=== PATIENT | female | born 1950 | race Caucasian/White ===

== ENCOUNTER → 2019-03-20 | Outpatient (CLI) | payer MEDICARE, OTHER | LOC: LAB SHORT 14:25 → LAB 14:25 | DX: N39.0 Urinary tract infection, site not specified (principal) | CPT/HCPCS: 87086 ==

== ENCOUNTER → 2019-04-17 | Outpatient (CLI) | payer MEDICARE, OTHER ==
[2019-04-17 11:15] LABS: Source, Urine Clean Catch
[2019-04-17 12:54] LABS: Bilirubin, Urine Neg (Neg); Blood, Urine Neg (Neg); Glucose Qualitative, Urine Neg (Neg); Ketones, Urine Neg (Neg); Leukocyte Esterase, Urine 1+ (Neg); Nitrite, Urine Neg (Neg); Protein, Urine Neg (Neg); Specific Gravity, Urine 1.015 (1.003-1.022); Urobilinogen, Urine NORM (Normal)
[2019-04-17 13:03] LABS: Appearance, Urine Clear (Clear); Color, Urine Yellow (P-Yellow)
[2019-04-17 13:05] LABS: Red Blood Cells, Urine 0-2 /hpf (0-2)
[2019-04-17 13:06] LABS: Bacteria Rare /hpf; Squamous Epithelial Cells Few /hpf (Few)
== END | disposition home or self-care (01) ==
LOC: LAB 11:14 → LAB SHORT 11:14
PROVIDERS: Internal Medicine
DX: N39.0 Urinary tract infection, site not specified (principal)
CPT/HCPCS: 81001; 87086

== ENCOUNTER 2020-03-03 12:19 | Emergency (ER) | payer MEDICARE, OTHER ==
[~2020-03-03] VITALS: Ht 180.3 cm; Wt 69.4 kg
[2020-03-03] MEDS ORDERED: FIORINAL 50-321 EACH PO (15:08)
[2020-03-03] MEDS ORDERED: POTCHL20ER PO (15:08)
[2020-03-03] MEDS ORDERED: CYCL10 PO (15:08)
[2020-03-03] MEDS ORDERED: MELATONIN5 M1 PO (15:08)
[2020-03-03] MEDS ORDERED: Calcium + Vita1 EACH PO (15:09)
== END 2020-03-03 17:03 | disposition home or self-care (01) ==
LOC: ER 12:19
DX: M97.01XA Periprosthetic fracture around internal prosthetic right hip joint, initial encounter (principal); S72.001A Fracture of unspecified part of neck of right femur, initial encounter for closed fracture; Z88.0 Allergy status to penicillin; Z88.2 Allergy status to sulfonamides; Z88.1 Allergy status to other antibiotic agents; Z88.8 Allergy status to other drugs, medicaments and biological substances; Z79.899 Other long term (current) drug therapy; W01.0XXA Fall on same level from slipping, tripping and stumbling without subsequent striking against object, initial encounter
CPT/HCPCS: 73502; 73700; 96374; 96375; 99284-25; J2405; J3010

== ENCOUNTER 2020-03-29 09:38 | Observation (INO) | payer MEDICARE, OTHER ==
[~2020-03-29] VITALS: Ht 180.3 cm; Wt 69.4 kg
[~2020-03-29 09:38] MED LIST: CYCL10 PO; Calcium + Vita1 EACH PO; FIORINAL 50-321 EACH PO; MELATONIN5 M1 PO; POTCHL20ER PO
[2020-03-29 10:16] LABS: BASOPHILS ABSOLUTE AUTO 0.01 K/mm3 (0.00-0.23); BASOPHILS PERCENT AUTO 0 % (0-2); EOSINOPHILS ABSOLUTE AUTO 0.03 K/mm3 (0.00-0.68); EOSINOPHILS PERCENT AUTO 0 % (0-6); Hematocrit 38.4 % (33.0-51.0); Hemoglobin 12.4 g/dL (11.5-16.0); IMMATURE GRAN ABSOLUTE AUTO 0.04 K/mm3 (0.00-0.10); IMMATURE GRAN PERCENT AUTO 0 % (0-1); LYMPHOCYTES ABSOLUTE AUTO 1.01 K/mm3 (0.84-5.20); LYMPHOCYTES PERCENT AUTO 9 % (21-46); MONOCYTES ABSOLUTE AUTO 0.78 K/mm3 (0.16-1.47); MONOCYTES PERCENT AUTO 7 % (4-13); Mean Corpuscular HGB 29.8 pg (26.0-34.0); Mean Corpuscular HGB Conc 32.3 g/dL (31.5-36.5); Mean Corpuscular Volume 92 fL (80-100); Mean Platelet Volume 9.7 fL (9.1-12.4); NEUTROPHILS ABSOLUTE AUTO 10.02 K/mm3 (1.96-9.15); NEUTROPHILS PERCENT AUTO 84 % (41-73); Platelet Count 328 K/mm3 (150-400); RDW Standard Deviation 44.1 fL (35.1-46.3); Red Blood Cell Count 4.16 M/mm3 (3.80-5.20); White Blood Cell Count 11.89 K/mm3 (4.00-11.30)
[2020-03-29 10:28] LABS: Alanine Aminotransfer (ALT/SGP 27 U/L (12-78); Albumin/Globulin Ratio 0.7 (0.8-1.8); Alk Phos 151 U/L (50-136); Anion Gap 7 mmol/L (6-16); Aspartate Aminotrans (AST/SGOT 21 U/L (12-37); Bilirubin, Total 0.3 mg/dL (0.1-1.0); Blood Urea Nitrogen 11 mg/dL (8-24); Bun/Creatinine Ratio 21.1 (12.0-20.0); CO2, Blood 25 mmol/L (21-32); Calcium, Blood 8.6 mg/dL (8.5-10.1); Chloride, Blood 106 mmol/L (98-108); Creatinine, Blood 0.52 mg/dL (0.40-1.00); Globulin, Blood 4.3 g/dL (2.2-4.0); Glomerular Filtration Rate >60 (60-); Glucose, Blood 113 mg/dL (70-99); Sodium, Blood 138 mmol/L (136-145); Total Protein, Blood 7.3 g/dL (6.4-8.2)
[2020-03-29 10:56] LABS: Source, Urine Clean Catch
[2020-03-29 11:15] LABS: Bilirubin, Urine Neg (Neg); Blood, Urine 3+ (Neg); Glucose Qualitative, Urine Neg (Neg); Ketones, Urine 2+ (Neg); Leukocyte Esterase, Urine 3+ (Neg); Nitrite, Urine Neg (Neg); Protein, Urine 2+ (Neg); Specific Gravity, Urine 1.015 (1.003-1.022); Urobilinogen, Urine NORM (Normal)
[2020-03-29 11:29] LABS: Appearance, Urine Hazy (Clear); Color, Urine Yellow (P-Yellow)
[2020-03-29 11:36] LABS: Bacteria Mod /hpf; Squamous Epithelial Cells Mod /hpf (Few)
[2020-03-29 11:40] LABS: Transitional Epithelial Cells Few /hpf (0-Rare)
[2020-03-29] MEDS ORDERED: Klor-Con 1010 MEQ PO (12:47)
[2020-03-29] MEDS ORDERED: ETHACRYNIC ACID25 MG PO (12:47)
[2020-03-29] MEDS ORDERED: BUTALBITAL-ASA1 EACH PO (12:47)
--- NOTE | 2020-03-29 15:50 | NUR ---
PATIENT TRANSFERED FORM ED, PATIENT ALERT AND ORIENTED, CONVERSING WITH NURSING STAFF. PATIENT DENIES CHEST PAIN, DENIES CALF PAIN/TENDERNESS. NO SIGNS OF ACUTE DISTRESS, WCTM.
--- NOTE | 2020-03-29 18:34 | NUR ---
NO ACUTE EVENTS THIS HALF OF SHIFT, PATIENT DENIES CHEST PAIN/PRESSURE, DENIES CALF PAIN, ELEVATED D-DIMER. VENOUS DUPLEX SHOWED PARTIALLY OCCLUSIVE DVT IN LLE. COAGULATION VIA XARELTO. CHEST CT SHOWS BILATERAL NON-OCCLUSIVE PEs, PATIENT ON ROOM AIR AND O2 SATS IN MID-HIGH 90S. PATIENT IS NON-WEIGHTBEARING STATUS DUE TO RECENT FRACTURE OF THE R. FEMUR POST HIP REPLACEMENT.
[2020-03-30 03:55] LABS: BASOPHILS ABSOLUTE AUTO 0.02 K/mm3 (0.00-0.23); BASOPHILS PERCENT AUTO 0 % (0-2); EOSINOPHILS ABSOLUTE AUTO 0.13 K/mm3 (0.00-0.68); EOSINOPHILS PERCENT AUTO 1 % (0-6); Hematocrit 36.8 % (33.0-51.0); Hemoglobin 11.9 g/dL (11.5-16.0); IMMATURE GRAN ABSOLUTE AUTO 0.04 K/mm3 (0.00-0.10); IMMATURE GRAN PERCENT AUTO 0 % (0-1); LYMPHOCYTES ABSOLUTE AUTO 1.43 K/mm3 (0.84-5.20); LYMPHOCYTES PERCENT AUTO 15 % (21-46); MONOCYTES ABSOLUTE AUTO 1.02 K/mm3 (0.16-1.47); MONOCYTES PERCENT AUTO 11 % (4-13); Mean Corpuscular HGB 29.8 pg (26.0-34.0); Mean Corpuscular HGB Conc 32.3 g/dL (31.5-36.5); Mean Corpuscular Volume 92 fL (80-100); Mean Platelet Volume 9.8 fL (9.1-12.4); NEUTROPHILS ABSOLUTE AUTO 7.12 K/mm3 (1.96-9.15); NEUTROPHILS PERCENT AUTO 73 % (41-73); Platelet Count 302 K/mm3 (150-400); RDW Coefficient Variation 12.6 % (11.7-14.2); RDW Standard Deviation 43.2 fL (35.1-46.3); Red Blood Cell Count 3.99 M/mm3 (3.80-5.20); White Blood Cell Count 9.76 K/mm3 (4.00-11.30)
--- NOTE | 2020-03-30 04:36 | NUR ---
SHIFT SUMMARY NO ACUTE CHANGES THIS SHIFT, MEDICATED 2X FOR MIGRAINE WHICH HAD BEEN ONGOING T/O THE DAY EVEN AFTER FIORICET ADMIN, BAUGH FINALLY RELIEVED W/IMITREX, TEMP 100.2 AT SHIFT START- RELIEVED W/FIORICET THEN AFEBRILE REMAINER OF SHIFT, SLEPT T/O THE NIGHT, NO OTHER C/O ANY KIND, CALL LIGHT IN REACH, WILL CONT TO MONITOR UNTIL REPORT GIVEN TO DAY RN.
[2020-03-30] MEDS ORDERED: Enulose10 GM/15 M PO (09:19)
[2020-03-30] MEDS ORDERED: XARELTO15 MG PO (09:21)
[2020-03-30] MEDS ORDERED: SENN187 PO (09:21)
[2020-03-30] MEDS ORDERED: SUMA25 PO (09:22)
[2020-03-30] MEDS ORDERED: LEVFLO500 PO (09:23)
[2020-03-30] MEDS ORDERED: XARELTO20 MG PO (09:24)
--- NOTE | 2020-03-30 18:14 | NUR ---
SHIFT NOTE PT HAS BEEN RESTING WELL IN BED, WAS UP WITH PHYSICAL THERAPY. VSS. PT ALERT ANSWERING QUESTIONS APPOPRIATELY. PT WITH VERY SMALL BM TODAY AFTER HAVING FLEETS ENEMA, LACTULOSE, SENNA, MIRALAX, AND COLACE. WITH DISTENDED STOMACH, PASSING LARGE AMTS OF GAS. PT HAS BEEN LAUGHING AND VISITING WITH S/O AT BEDSIDE T/O THE DAY. DR ISRAEL HAS BEEN IN TO EDUCATE FAMILY. PT WAS MADE MEDICAL STATUS AND D/C WAS HELD UNTIL POSSIBLY TOMORROW PT HAS NOT HAD BM AND NEEDS HOME HEALTH SET UP.
--- NOTE | 2020-03-31 18:40 | NUR ---
a+o, rapid covid test done and sent in, tolerated well by pt, has been using walker to manuver around room with PT assistance, has been calling before getting up to go to bathroom, cheerful and cooperative with care, family in to visit, looking forward to moving to snf tomorrow, medicated as prescribed, no s/sx of embolism noted during shift, will continue to monitor and treat
--- NOTE | 2020-03-31 19:20 | NUR ---
ASSUMED CARE RECEIVED REPORT FROM MAGGIE DUBOIS. ASSUMED CARE OF PT. RESTING COMFORTABLY, NO S/S ACUTE DISTRESS NOTED. DENIES NEEDS. CALL LIGHT, POSSESSIONS IN REACH. WILL CONINUE TO MONITOR.
--- NOTE | 2020-04-01 03:54 | NUR ---
SHIFT SUMMARY PT RESTING COMFORTABLY AT THIS TIME, NO S/S ACUTE DISTRESS NOTED. WAS MONITORED EVERY 1-2 HOURS WITH NEEDS MET. AMBULATED TO BATHROOM T/O NIGHT WITH 1 ASSIST, TOLERATED WELL. BAUGH MANAGED WITH MEDS PER EMAR, PT REPORTS EFFECTIVE RELIEF. NO ACUTE CHANGES IN CONDITION T/O NIGHT, VS REVIEWED. AM LABS PENDING. PT DENIES NEEDS AT THIS TIME. CALL LIGHT, POSSESSIONS IN REACH. BED IN LOW POSITION WITH ALARMS ON. WILL CONTINUE TO MONITOR UNTIL DAY RN ASSUMES CARE.
[2020-04-01 05:41] LABS: BASOPHILS ABSOLUTE AUTO 0.02 K/mm3 (0.00-0.23); BASOPHILS PERCENT AUTO 0 % (0-2); EOSINOPHILS ABSOLUTE AUTO 0.22 K/mm3 (0.00-0.68); EOSINOPHILS PERCENT AUTO 4 % (0-6); Hematocrit 35.4 % (33.0-51.0); Hemoglobin 11.6 g/dL (11.5-16.0); IMMATURE GRAN ABSOLUTE AUTO 0.02 K/mm3 (0.00-0.10); IMMATURE GRAN PERCENT AUTO 0 % (0-1); LYMPHOCYTES ABSOLUTE AUTO 1.46 K/mm3 (0.84-5.20); LYMPHOCYTES PERCENT AUTO 24 % (21-46); MONOCYTES ABSOLUTE AUTO 0.65 K/mm3 (0.16-1.47); MONOCYTES PERCENT AUTO 11 % (4-13); Mean Corpuscular HGB Conc 32.8 g/dL (31.5-36.5); Mean Corpuscular Volume 92 fL (80-100); Mean Platelet Volume 9.8 fL (9.1-12.4); NEUTROPHILS PERCENT AUTO 62 % (41-73); Platelet Count 317 K/mm3 (150-400); RDW Coefficient Variation 12.4 % (11.7-14.2); RDW Standard Deviation 41.4 fL (35.1-46.3); Red Blood Cell Count 3.87 M/mm3 (3.80-5.20); White Blood Cell Count 6.17 K/mm3 (4.00-11.30)
[2020-04-01 06:04] LABS: Anion Gap 6 mmol/L (6-16); Blood Urea Nitrogen 14 mg/dL (8-24); CO2, Blood 28 mmol/L (21-32); Calcium, Blood 8.6 mg/dL (8.5-10.1); Chloride, Blood 102 mmol/L (98-108); Creatinine, Blood 0.54 mg/dL (0.40-1.00); Glomerular Filtration Rate >60 (60-); Glucose, Blood 97 mg/dL (70-99); Potassium, Blood 4.1 mmol/L (3.5-5.5); Sodium, Blood 136 mmol/L (136-145)
[2020-04-01] MEDS ORDERED: ACET325 PO (09:16)
[2020-04-01] MEDS ORDERED: DOCU100 PO (09:17)
[2020-04-01] MEDS ORDERED: FIORINAL 50-321 EACH PO (09:17)
[2020-04-01] MEDS ORDERED: ONDA4ODT MM (09:20)
[2020-04-01] MEDS ORDERED: MIRALAX17 GM PO (09:21)
[2020-04-01] MEDS ORDERED: VISBIOME PROBIOTIC PO (09:22)
--- NOTE | 2020-04-01 17:39 | NUR ---
DISCHARGE SUMMARY PATIENT DISCHARGED TO [facility]. PATIENT ALERT AND ORIENTED X4 THIS SHIFT. PATIENT ONE PERSON ASSIST WITH FWW, WORKED WITH PT AND WALKED IN THE HALLWAY THIS SHIFT. PATIENT'S IN THE ROOM MUCH OF THIS SHIFT. PATIENT TO TRANSPORTATION VIA WHEELCHAIR WITH RYAN RICE RN. IV REMOVED PRIOR TO DISCHARGE. REPORT CALLED TO [facility].
== END 2020-04-01 16:51 ==
LOC: ER 09:38 → PCU 09:39 → MEDS 03-30 23:00 → ENPENDDIS 04-01 09:14 → MEDS 04-01 16:51
PROVIDERS: Emergency Medicine; Family Medicine; ADMIT Internal Medicine
DX: I26.99 Other pulmonary embolism without acute cor pulmonale (principal); I82.412 Acute embolism and thrombosis of left femoral vein; N39.0 Urinary tract infection, site not specified; G43.909 Migraine, unspecified, not intractable, without status migrainosus; K59.09 Other constipation; R60.9 Edema, unspecified; G35 Multiple sclerosis; M81.0 Age-related osteoporosis without current pathological fracture; Z96.641 Presence of right artificial hip joint; Z79.01 Long term (current) use of anticoagulants; Z79.899 Other long term (current) drug therapy; Z20.828 Contact with and (suspected) exposure to other viral communicable diseases; Z23 Encounter for immunization
CPT/HCPCS: 36415; 71101; 71260; 80048; 80053; 81001; 83690; 85025; 85379; 87086; 93970; 96365; 96366; 96372; 96375; 96376; 97110; 97116; 97161; 99285-25; G0378; J1650; J1956; J2405; J7050; Q9967; U0003